=== PATIENT | female | born 1940 | race Caucasian/White ===

== ENCOUNTER 2023-11-09 19:50 | Emergency (ER) | payer OTHER, SELFPAY ==
[2023-11-09 19:54] VITALS: BP 158/78
[2023-11-09 20:44] VITALS: BMI 25.3
--- NOTE | 2023-11-09 21:55 | ED.SKININJ ---
HPI-Injury
General
Chief Complaint: Ear Problem
Source: patient and family
Time Seen by Provider: 11/09/23 21:47
Nursing documentation reviewed up to this point in time: agreed with
Travel History
Have you had any contact with someone who has COVID-19?: No
Do you have any symptoms of coronavirus? Fever > 100 degrees, chills, cough, shortness of breath, sore throat, loss of taste or smell, muscle aches, or headache?: No
History of Present Illness-Injury
Initial Injury comments:
Pleasant 82-year-old female presents with the tip of an lbeb-zyn-ydaycwy hearing aid lodged in her right external canal. Denies any pain. Family member tried getting the foreign body out without success.
Past History
Past History
ED Past Medical History: GERD, HTN and Psychiatric (Anxiety)
ED Past Surgical History: None
Social History
Tobacco: Former smoker
Alcohol: Daily (wine 1-2 glasses)
Personal:
Living: alone
Phy Exam
General Physical Exam
General Presentation: well appearing and no apparent distress
General Skin: warm and dry
General Habitus: elderly
General Mental: alert
ENT Exam
Additional ENT: Right ear has a foreign body
Pulmonary Exam
Pulmonary Exam: no respiratory distress
Musculoskeletal Exam
Musculoskeletal Exam: full ROM
Skin Exam
Skin Exam: normal color
Psychiatric Exam
Psychiatric Exam: normal mood/affect
Course
Vital Signs
Initial and Last Documented VS:
Initial Vital Signs
Temp Pulse Resp BP Pulse Ox
98.4 F 88 20 158/78 95
11/09/23 19:54 11/09/23 19:54 11/09/23 19:54 11/09/23 19:54 11/09/23 19:54
Last Documented Vital Signs
Temp Pulse Resp BP Pulse Ox
98.4 F 88 20 158/78 95
11/09/23 19:54 11/09/23 19:54 11/09/23 19:54 11/09/23 19:54 11/09/23 19:54
Procedures
Foreign Body Removal-Ear
Right External canal:
Tenderness: none
Any local drainage: none
Removal of foreign body using: simple forceps
Exam of canal after removal: no inflammation
Additional Information:
Procedure performed by PA student under my direct supervision. I was present for the entirety of the procedure. Patient tolerated procedure well with no immediate adverse effects.
*Critical Care Note
Total Time (30-74mins, 75-104mins- exclusive of procedures): Not Applicable
ED Attending Note
-
Portions of this chart may have been created with voice recognition software.� Occasional wrong word or��sound alike� substitutions may have occurred due to the inherent limitations of voice recognition software.
Discharge Plan
Departure
Patient Disposition: Home (Routine Discharge)
Date of Disposition: 11/09/23
Time of Disposition: 21:56
Patient with high blood pressure during this ER visit?: Yes
Condition: Good
Discharge Problem:
Ear foreign body
Instructions: Foreign Body in Ear (DC)
Prescriptions:
No Action
oxycodone 5 mg capsule
5 mg PO Q8H PRN (Reason: pain) Qty: 7 0RF
Referrals:
[facility] [Outside]
Activity Restrictions/Additional Instructions:
It was a pleasure meeting you and taking part in your care. We hope for your continued healing and wellness.
Please read discharge instructions in their entirety. However, they are for general education and may not describe your exact diagnosis at discharge. Information on your ER visit and medical conditions were discussed with you along with appropriate
follow up information...
If indicated, please take your medications as instructed and indicated on discharge paperwork.
Please schedule a follow up appointment as directed. Call to schedule an appointment
Please return to the emergency department with ANY change in, persisting, or worsening of symptoms. If any of your symptoms do not improve, or persist, or become more severe within 6-12 hours, please return to the emergency department for further
care.
Please return to the emergency department if you develop a headache, neck pain/stiffness, fever greater than 100.4F, chest pain, shortness of breath, persistent nausea, vomiting, slurred speech, difficulty walking, numbness/tingling, weakness, signs
of infection or any other symptoms that are worrisome to you.
If you have any questions or concerns please do not hesitate to call the Hospital at or E-mail me directly at [email or web address]
Interventions
Interventions:
*Risk Screen - Suicide Last Done: 11/09/23 19:54
*General Assessment Last Done: 11/09/23 19:54
*Neglect/Abuse Screening Last Done: 11/09/23 19:54
ED- Fall Risk Assessment Last Done: 11/09/23 19:54
*ED COVID-19 Vaccine History Last Done: 11/09/23 19:54
*Nursing Disposition Last Done: 11/09/23 22:06
Discharge Date and Time
Discharge Date/Time: 11/09/23 22:07
Print Language: KYRGYZ
== END 2023-11-09 22:07 | disposition home or self-care (01) ==
LOC: EMR 19:50
PROVIDERS: EMERGENCY PHYSICIAN Student in an Organized Health Care Education/Training Program
DX: T16.1XXA Foreign body in right ear, initial encounter (principal); W44.G1XA Audio device entering into or through a natural orifice, initial encounter; K21.9 Gastro-esophageal reflux disease without esophagitis; I10 Essential (primary) hypertension; F41.9 Anxiety disorder, unspecified; Z87.891 Personal history of nicotine dependence
CPT/HCPCS: 99282

== ENCOUNTER 2024-06-17 17:02 | Emergency (ER) | payer OTHER, SELFPAY ==
[2024-06-17 17:03] VITALS: BP 129/87
--- NOTE | 2024-06-17 19:17 | ED.MUSCINJ ---
HPI-Injury
General
Chief Complaint: Musculo-Skeletal Complaint
Source: patient
Exam Limitations: none
Time Seen by Provider: 06/17/24 19:08
History of Present Illness-Injury
Is this injury a work related problem?: No
Is pt an associate of [facility]?: No
Initial Injury comments:
This is a 83 year old female that comes in with c/o left shoulder pain. States that she tripped over her dog and fell forward. States that she hit the left shoulder. States that she did not hit her head or have any LOC. States that
she only has left shoulder pain. Denies any fever, chills, chest pain, SOB, abd pain, nausea, vomiting, diarrhea, headache, diarrhea, urinary burning.
Past History
Past History
ED Past Medical History: GERD, HTN and Psychiatric (Anxiety)
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
Social History
Tobacco: Former smoker
Alcohol: Daily (wine 1-2 glasses)
Drug: None
Personal:
Living: alone
Review of Systems
Review of Systems
All Other Systems: ROS reviewed and negative except as documented in HPI and ROS
Constitutional: Reports no symptoms; Denies fever or chills
EENT: Reports no symptoms
Respiratory: Denies cough or trouble breathing
Cardiac: Reports no symptoms; Denies chest pain
ABD/GI: Reports no symptoms; Denies abdominal pain, nausea, vomiting or diarrhea
: Reports no symptoms; Denies dysuria, frequency or urgency
Musculoskeletal: Reports joint pain (Left shoulder pain) and other
Skin: Reports no symptoms
Neurological: Reports no symptoms; Denies dizzy or headache
Psychiatric: Reports no symptoms
Musculoskeletal Injury Exam
Musculoskeletal Injury Exam
Left Anterior Shoulder:
Pain with Movement?: Moderate
Tender to palpation?: Moderate
Soft tissue swelling?: Moderate
External deformity and angulation?: Mild
Joint effusion?: None
Contusion?: None
Hematoma-local bleeding into tissue?: None
Strain- Sprain- Tear (Connective tissue injury)?: None
Crepitus with movement?: No
Joint instability?: Yes
Malalignment/deformity?: No
Range of motion: Limited (Due to pain)
Distal skin color and temperature: normal-warm & good color
Capillary Refill: normal
Normal distal neurovascular exam?: Yes
Phy Exam
General Physical Exam
General Presentation: mild distress
General age: appears stated age
General Skin: warm and dry
General Habitus: elderly
General Mental: alert
General Hydration: appears well hydrated
ENT Exam
ENT Exam: pharynx normal and neck supple
Eye Exam
Eye Exam: EOMI
Cardiovascular Exam
Cardiovascular Exam: regular rate/rhythm and no murmur
Musculoskeletal Exam
Musculoskeletal Exam: other (Left shoulder swelling and tenderness to palpation. Patient able to flex elbow without discomfort. Negative for cervical neck tenderness or spinal tenderness)
Skin Exam
Skin Exam: normal color, warm/dry, no rash and no petechia
Injury Course
Orders/Labs/Results
Orders:
Orders
06/17/24 17:05
Shoulder, Left, Trauma CR [CR Shoulder, Trauma - Left] Urgent
Comment:
Reason For Exam: pain
06/17/24 19:17
Sling Left-Treatment ONCE
06/17/24 19:19
Acetaminophen [Tylenol] 1,000 mg PO NOW STA
MDM/Problems Addressed
Differential Diagnosis Includes:
Left shoulder fracture, Shoulder dislocation
MDM/Problems Addressed:
This is a 83 year old female that comes in with c/o left shoulder pain after tripping and falling over her dog. State that she did not hit her head or have any LOC.
Will get X-ray.
Explained to patient that she has a fracture of the left shoulder. She will be place in a sling and will need to see the claims specialist. Patient to use TYlenol 1000mg every 6 hours and alternate with Ibuprofen 600mg every 6 hours with food
for pain. Ice to the shoulder. Patient to return with any concerns.
Chronic conditions affecting care:
NA
Acute Exacerbation and/or Progression of Chronic Illness:
NA
*Radiology
Radiology exam reviewed: preliminary read by ED provider (Shoulder- Left humeral head fracture of the shoulder) and radiology read reviewed (Left shoulder-Surgical neck fracature and superior glenoid margin fracture, As descirbed. )
*Pulse Oximetry
Patient hypoxic: no
*EKG
Interpreted by ED Provider?: NA
Rate: EKG- N/A
*Service Line Layer Interpretation
Rate: Service Line Layer- N/A
*Critical Care Note
Total Time (30-74mins, 75-104mins- exclusive of procedures): Not Applicable
ED Attending Note
-
Portions of this chart may have been created with voice recognition software.� Occasional wrong word or��sound alike� substitutions may have occurred due to the inherent limitations of voice recognition software.
Discharge Plan
Departure
Patient Disposition: Home (Routine Discharge)
Date of Disposition: 06/17/24
Time of Disposition: 20:08
Patient with high blood pressure during this ER visit?: No
Condition: Good
Covid-19: Not Applicable
Discharge Problem:
Fracture of left shoulder
Instructions: How to Use a Shoulder Sling, Upper Arm Fracture ED, RICE Therapy
Prescriptions:
No Action
oxycodone 5 mg capsule
5 mg PO Q8H PRN (Reason: pain) Qty: 7 0RF
Referrals:
Nathanael Woodall MD [Active] - Follow up in 2-3 days
UNKNOWN - PT DOES,NOT KNOW [Family Provider] -
Activity Restrictions/Additional Instructions:
As discussed, you have a fracture of the upper arm. Please use the sling when you are up moving around. Remove the sling to sleep and rest on a pillow. Please call the claims specialist to st up an appointment for further evaluation. You may
take Tylenol 1000mg every 6 hour and alternate with Ibuprofen 600mg every 6 hours with food. So if you take Tylenol at 9am then take Ibuprofen at 12 noon, Tylenol again at 3pm and Ibuprofen at 6pm. Ice to the shoulder to help decrease pain. IF YOU
HAVE ANY OTHER CONCERNS PLEASE RETURN TO THE EMERGENCY ROOM.
Interventions
Interventions:
*Risk Screen - Suicide Last Done: 06/17/24 17:03
*Neglect/Abuse Screening Last Done: 06/17/24 19:12
ED-Musculoskeletal Assessment Last Done: 06/17/24 19:11
Discharge Date and Time
Print Language: CITIZEN OF [place]
[2024-06-17] MEDS: TYLENOL 1000 MG PO (20:28)
== END 2024-06-17 20:30 | disposition home or self-care (01) ==
LOC: EMR 17:02
PROVIDERS: EMERGENCY PHYSICIAN Emergency Medicine
DX: S42.292A Other displaced fracture of upper end of left humerus, initial encounter for closed fracture (principal); W01.0XXA Fall on same level from slipping, tripping and stumbling without subsequent striking against object, initial encounter; I10 Essential (primary) hypertension; K21.9 Gastro-esophageal reflux disease without esophagitis; Z87.891 Personal history of nicotine dependence
CPT/HCPCS: 99283; 73030

== ENCOUNTER 2024-12-13 16:28 | Emergency (ER) | payer OTHER, SELFPAY ==
[2024-12-13 16:43] VITALS: BP 150/71
--- NOTE | 2024-12-13 18:48 | ED.GENMED ---
History of Present Illness
General
Chief Complaint: Skin Surface Trauma
Source: patient
Exam Limitations: none
Time Seen by Provider: 12/13/24 17:28
Nursing documentation reviewed up to this point in time: agreed with
History of Present Illness
History of Present Illness:
84-year-old female past medical history of hypertension GERD presenting to the emergency department today with concerns of a dog scratch to the right lower leg denies any numbness weakness or additional concerns otherwise.
Past History
Past History
ED Past Medical History: GERD, HTN and Psychiatric (Anxiety)
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
Social History
Tobacco: Former smoker
Alcohol: Daily (wine 1-2 glasses)
Drug: None
Personal:
Living: alone
Review of Systems
Review of Systems
Allergies reviewed?: Yes
All Other Systems: ROS reviewed and negative except as documented in HPI and ROS
Phy Exam
Physical Exam
Physical Exam:
GENERAL: Alert , in no apparent distress
EYE: pupils equal and reactive
NECK: Supple, no significant adenopathy.
ENT: o/p clr, mmm.
CARDIAC: Regular rate and rhythm .
LUNGS: Clear breath sounds bilaterally, no acute respiratory distress, no wheezes/rales/rhonchi
ABDOMEN: Soft, without focal tenderness, no r/g, no cvat
NEUROLOGICAL: Alert and oriented, no focal neuro deficits
SKIN: 5 cm laceration to the right distal anterior sanchez subcutaneous in depth no foreign body seen warm and dry, skin intact.
MUSCULOSKELETAL: No edema, well perfused.
PSYCH: Normal and appropriate interaction.
Course
Orders/Labs/Results
Orders:
Orders
12/13/24 18:47
Amoxicillin 875 mg/Clav 125 mg [Augmentin 875 mg/125 mg] 1 tablet PO NOW STA
12/13/24 18:51
Tetanus/Diphth/Acelpertussis [Adacel] 0.5 ml IM .ONCE ONE
Vital Signs
Initial and Last Documented VS:
Initial Vital Signs
Temp Pulse Resp BP Pulse Ox
98.3 F 91 20 150/71 98
12/13/24 16:43 12/13/24 16:43 12/13/24 16:43 12/13/24 16:43 12/13/24 16:43
Last Documented Vital Signs
Temp Pulse Resp BP Pulse Ox
98.3 F 91 20 150/71 98
12/13/24 16:43 12/13/24 16:43 12/13/24 16:43 12/13/24 16:43 12/13/24 16:43
Procedures
Laceration Closure
Right Anterior Distal Leg:
Status of Wound: clean
Size of Wound in cm: 5
Description of Wound Edges: sharp
Preparation: cleaned with saline
Anesthesia: 1% Lidocaine with epi
Revision/Debridement: routine- no revision and irrigate-direct pressure
Wound exploration: explored to base- no FB
Type of Closure: single layer closure and other (Four total Steri-Strips)
MDM/Problems Addressed
MDM/Problems Addressed:
84-year-old female presenting to the emergency department today with concerns of a dog scratch to the right lower leg. There was a 5 cm subcutaneous in depth laceration. No foreign body seen this was thoroughly irrigated. This was loosely
approximated with Steri-Strips was not fully close due to the risk of the dog scratch. She will start on antibiotics but otherwise stable for outpatient management. Return precautions given.
*Critical Care Note
Total Time (30-74mins, 75-104mins- exclusive of procedures): Not Applicable
ED Attending Note
-
Portions of this chart may have been created with voice recognition software.� Occasional wrong word or��sound alike� substitutions may have occurred due to the inherent limitations of voice recognition software.
Discharge Plan
Departure
Patient Disposition: Home (Routine Discharge)
Date of Disposition: 12/13/24
Time of Disposition: 18:48
Patient with high blood pressure during this ER visit?: No
Condition: Good
Covid-19: Not Applicable
Discharge Problem:
Dog scratch
Instructions: Wound Care (DC)
Prescriptions:
New
amoxicillin-pot clavulanate 875-125 mg tablet
1 tab PO BID 5 Days Qty: 10 0RF
No Action
oxycodone 5 mg capsule
5 mg PO Q8H PRN (Reason: pain) Qty: 7 0RF
Referrals:
Annmarie Barboza NP [Family Provider] -
Activity Restrictions/Additional Instructions:
You came to the emergency department today with concerns of a scratch to your right lower extremity. This was cleaned and closed with 4 Steri-Strips. Please keep the area clean covered and follow-up for any evidence of infection. Return for any
worsening, new or concerning symptoms. Please take the prescribed antibiotics.
Interventions
Interventions:
*Risk Screen - Suicide Last Done: 12/13/24 16:43
*General Assessment Last Done: 12/13/24 17:09
*Neglect/Abuse Screening Last Done: 12/13/24 17:09
*ED COVID-19 Vaccine History Last Done: 12/13/24 17:09
*Nursing Disposition Last Done: 12/13/24 19:07
ED-Skin Assessment Last Done: 12/13/24 17:09
Discharge Date and Time
Discharge Date/Time: 12/13/24 19:07
Print Language: TAIWANESE
[2024-12-13] MEDS: AUGMENTIN 875 MG/125 MG 1 TABLET PO (19:06)
[2024-12-13] MEDS: ADACEL 0.5 ML IM (19:06)
== END 2024-12-13 19:07 | disposition home or self-care (01) ==
LOC: EMR 16:28
PROVIDERS: EMERGENCY PHYSICIAN Emergency Medicine; FAMILY PHYSICIAN Nurse Practitioner Adult Health
DX: S81.811A Laceration without foreign body, right lower leg, initial encounter (principal); W54.8XXA Other contact with dog, initial encounter; I10 Essential (primary) hypertension; Z87.891 Personal history of nicotine dependence; Z23 Encounter for immunization
CPT/HCPCS: 90471; 99282; 90715